=== PATIENT | female | born 1945 | race Caucasian/White ===

== ENCOUNTER → 2017-08-19 | Outpatient (CLI) | payer MEDICARE, OTHER ==
[~2017-08-19] MED LIST: IOPAMIDOL 370 MG/ML 200 ML INFUS..BTL INJ ONE; SODIUM CHLORIDE 0.9% 50ML 50 ML ONE
[2017-08-19 10:50] LABS: BLOOD UREA NITROGEN 15 mg/dL (7-26); BUN/CREATININE RATIO 17 (6-25); CREATININE, SERUM 0.89 mg/dL (0.57-1.11); EST GLOMERULAR FILTRATION RATE > 60 ML/MIN (60-)
--- NOTE | 2017-08-19 16:43 | Diagnostic Imaging Report ---
PROCEDURE:US GUIDANCE FOR VASCULAR ACCESS COMPARISON:None. INDICATIONS:IV access FINDINGS:Ultrasound evaluation of potential access sites was performed. After successfully identifying a patent vessel, US guidance was used to puncture the vein. A permanent recording was created for the patient record. CONCLUSION:Successful IV access by Ultrasound guidance. Kelechi Hughes M.D. Dictated by: Kelechi Hughes M.D. on 08/19/2017 at 16:48 Electronically approved by: Kelechi Hughes M.D. on 08/19/2017 at 16:48
--- NOTE | 2017-08-20 11:12 | Diagnostic Imaging Report ---
EXAMINATION: CT angiogram of the neck CLINICAL HISTORY: Carotid artery stenoses on the left side COMPARISON STUDIES: None TECHNIQUE: Axial images were obtained from the thoracic inlet. Coronal and sagittal images reconstructed from the axial data. Intravenous contrast: 100 mL of Isovue-370. FINDINGS: If present, stenosis of the carotid bulbs is measured based on NASCET criteria i.e area of maximum stenosis compared to the cervical ICA distal to the bulb. Aortic arch and major vessels: Scattered soft and calcified plaque without stenosis. Common origin of the brachiocephalic trunk and left common carotid artery as a normal variation of the anatomy. Common carotid arteries: Right: Patent. No abnormalities. Left :Patent. No abnormalities. Carotid bulbs: Right: Mostly soft and calcified plaque in the right posterior wall of the carotid bulb results in severe stenosis (greater than 70%). There is a small ulcerated plaque in the dorsal aspect of the carotid bulb. Left :Mostly soft plaque along the lateral and posterior wall of the left carotid bulb results in severe stenosis (greater than 70%). Internal carotid arteries: Right: Patent. No abnormalities. Left: Patent. No abnormalities. Vertebral arteries: Soft and calcified plaque at the origin of the left vertebral artery with occlusion of the left vertebral artery V1 segment, reconstitution of the distal V2, V3 and V4 segments is identified. The left vertebral artery end as a PICA. Overall there is mild diffuse narrowing and irregularity of the left vertebral artery, likely related to atherosclerosis. Patent right vertebral artery. IMPRESSION: 1. Severe stenosis of the bilateral carotid bulbs (greater than 70%). 2. Ulcerated soft atherosclerotic plaque in the right carotid bulb is considered highly embologenic. 3. 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 Signed by: Dr. Ngoc Tejeda M.D. on 08/20/2017 11:09 AM
== END ==
LOC: CT 10:13
PROVIDERS: ATTEND Internal Medicine Cardiovascular Disease
DX: I65.29 Occlusion and stenosis of unspecified carotid artery (principal)
CPT/HCPCS: 36415; 70498; 76937; 82565; 84520; Q9967

== ENCOUNTER 2017-09-07 05:58 | Inpatient (IN) | payer MEDICARE, OTHER ==
[2017-09-06 12:31] LABS: BASOPHILS % 0.5 % (0.0-1.0); EOSINOPHILS # (AUTO) 0.4 (0.0-0.4); EOSINOPHILS % 4.1 % (0.0-6.0); HEMATOCRIT 36.6 % (34.2-44.1); HEMOGLOBIN 12.1 g/dL (12.0-16.0); LYMPHOCYTES # (AUTO) 2.6 (1.0-3.2); LYMPHOCYTES % 30.9 % (18.0-39.1); MEAN CORPUSCULAR HEMOGLOBIN 30.8 pg (28-32); MEAN CORPUSCULAR HGB CONC 33.1 g/dL (31-35); MEAN CORPUSCULAR VOLUME 93.1 fL (81-99); MONOCYTES # (AUTO) 0.6 (0.2-0.8); MONOCYTES % 6.6 % (4.4-11.3); NEUTROPHILS # (AUTO) 4.9 (2.1-6.9); NEUTROPHILS % 57.7 % (38.7-80.0); PLATELET COUNT 228 x10e3/uL (140-360); RED BLOOD COUNT 3.93 x10e6/uL (3.6-5.1); RED CELL DISTRIBUTION WIDTH 13.9 % (11.7-14.4)
[2017-09-06 12:45] LABS: INR 1.08; PARTIAL THROMBOPLASTIN TIME 31.1 seconds (23.8-35.5); PROTHROMBIN TIME 13.2 seconds (11.9-14.5)
[2017-09-06 12:49] LABS: ANION GAP 13.8 mmol/L (8-16); BLOOD UREA NITROGEN 14 mg/dL (7-26); BUN/CREATININE RATIO 16 (6-25); CALCIUM 9.5 mg/dL (8.4-10.2); CARBON DIOXIDE 25 mmol/L (22-29); CHLORIDE 106 mmol/L (98-107); CREATININE, SERUM 0.86 mg/dL (0.57-1.11); EST GLOMERULAR FILTRATION RATE > 60 ML/MIN (60-); GLUCOSE 96 mg/dL (74-118); POTASSIUM 4.8 mmol/L (3.5-5.1); SODIUM 140 mmol/L (136-145)
--- NOTE | 2017-09-06 13:05 | Diagnostic Imaging Report ---
PROCEDURE: Frontal and lateral views of the chest. COMPARISON: None. INDICATIONS: PREOPERATIVE CHEST XRAY FOR LEFT HEART CATH FINDINGS: Lines/tubes: None. Lungs: The lungs are well inflated and clear. There is no evidence of pneumonia or pulmonary edema. Pleura: There is no pleural effusion or pneumothorax. Heart and mediastinum: The heart and the mediastinum are normal. Bones: No acute bony abnormality. IMPRESSION: 1. No acute cardiopulmonary disease. Dictated by: Satya Vuong M.D. on 09/06/2017 at 13:11 Electronically approved by: Satya Vuong M.D. on 09/06/2017 at 13:11
[~2017-09-07] VITALS: Ht 152.4 cm; Wt 84.4 kg
[2017-09-07] VITALS (21 sets, daily range): BP systolic 89–132; BP diastolic 49–81
[~2017-09-07 05:58] MED LIST changes: +AMITRIPTYLINE H10 MG PO; +AMLODIPINE BESYL5 MG PO; +ASPIR 8181 MG PO; +ATORVASTATIN CA40 MG PO; +CARVEDILOL3.125 MG PO; +EFFIENT10 MG PO; -IOPAMIDOL 370 MG/ML 200 ML INFUS..BTL INJ ONE; -SODIUM CHLORIDE 0.9% 50ML 50 ML ONE
[2017-09-07] MEDS ORDERED: PROTAMINE SULFATE 10 MG/ML 5 ML VIAL ONE (06:22)
[2017-09-07] MEDS ORDERED: HEPARIN SOD (PORCINE) 1000 UNIT/ML 30ML ONE (06:22)
[2017-09-07] MEDS ORDERED: LIDOCAINE HCL 1% 2 ML AMP ONE (06:22)
[2017-09-07] MEDS ORDERED: GELATIN SPONGE SZ 100 ONE (06:23)
[2017-09-07] MEDS ORDERED: SODIUM CHLORIDE 0.9% 500ML 500 ML ONE (06:23)
[2017-09-07] MEDS ORDERED: MUPIROCIN 2% OINT 22 GM TUBE ONE (06:23)
[2017-09-07] MEDS ORDERED: THROMBIN FOR SOLN 5,000 UNIT VIAL ONE (06:23)
[2017-09-07] MEDS ORDERED: CEFAZOLIN SOD 1 GM VIAL ONE (07:02)
[2017-09-07] MEDS ORDERED: SODIUM CHLORIDE 0.9% 100 ML 100 ML ONE (08:45)
[2017-09-07] MEDS ORDERED: MORPHINE SULFATE 2 MG/ML SYR ONE (10:33)
[2017-09-07] MEDS ORDERED: FENTANYL CITRATE/PF 100MCG/2 ML INJ ONE ×2 (10:57→15:47)
[2017-09-07 10:59] LABS: BASOPHILS % 0.3 % (0.0-1.0); EOSINOPHILS # (AUTO) 0.2 (0.0-0.4); EOSINOPHILS % 1.6 % (0.0-6.0); HEMATOCRIT 35.1 % (34.2-44.1); HEMOGLOBIN 11.8 g/dL (12.0-16.0); LYMPHOCYTES # (AUTO) 1.6 (1.0-3.2); LYMPHOCYTES % 15.4 % (18.0-39.1); MEAN CORPUSCULAR HEMOGLOBIN 31.1 pg (28-32); MEAN CORPUSCULAR HGB CONC 33.6 g/dL (31-35); MEAN CORPUSCULAR VOLUME 92.4 fL (81-99); MONOCYTES # (AUTO) 0.1 (0.2-0.8); MONOCYTES % 1.3 % (4.4-11.3); NEUTROPHILS # (AUTO) 8.3 (2.1-6.9); NEUTROPHILS % 81.1 % (38.7-80.0); PLATELET COUNT 206 x10e3/uL (140-360); RED CELL DISTRIBUTION WIDTH 13.6 % (11.7-14.4)
[2017-09-07 11:18] LABS: ALANINE AMINOTRANSFERASE 16 IU/L (0-55); ALBUMIN/GLOBULIN RATIO 1.5 (0.8-2.0); ALKALINE PHOSPHATASE 92 IU/L (40-150); ANION GAP 15.5 mmol/L (8-16); BLOOD UREA NITROGEN 13 mg/dL (7-26); BUN/CREATININE RATIO 15 (6-25); CALCIUM 8.9 mg/dL (8.4-10.2); CARBON DIOXIDE 20 mmol/L (22-29); CHLORIDE 109 mmol/L (98-107); CREATININE, SERUM 0.85 mg/dL (0.57-1.11); EST GLOMERULAR FILTRATION RATE > 60 ML/MIN (60-); GLUCOSE 182 mg/dL (74-118); POTASSIUM 4.5 mmol/L (3.5-5.1); SODIUM 140 mmol/L (136-145)
[2017-09-07] MEDS: SODIUM CHLORIDE 0.9% 1000ML 1,000 ML IV SCH ×2 (12:00→23:45)
[2017-09-07] MEDS ORDERED: MORPHINE SULFATE INJ 4 MG/ML INJ IV PRN (12:15)
[2017-09-07] MEDS ORDERED: LABETALOL HCL 5 MG/ML 20ML VIAL IV PRN (12:15)
[2017-09-07] MEDS ORDERED: ONDANSETRON HCL INJ 2 MG/ML VIAL IV PRN (12:15)
--- NOTE | 2017-09-07 12:36 | Diagnostic Imaging Report ---
PROCEDURE:SPINE 1 VIEW CERVICAL. COMPARISON:None. INDICATIONS:OR portable radiographs for lost needle. FINDINGS: One portable view of the cervical spine (AP) The patient is intubated with the endotracheal tube just below the thoracic inlet. Two surgical clips are projected over the right side of the cervical spine. No radiopaque needle is identified. CONCLUSION: No radiopaque needle is identified. Dictated by: Dimitri Lerma M.D. on 09/07/2017 at 12:42 Electronically approved by: Dimitri Lerma M.D. on 09/07/2017 at 12:42
[2017-09-07] MEDS ORDERED: MIDAZOLAM HCL 2 MG/2 ML VIAL ONE (15:47)
--- NOTE | 2017-09-07 15:59 | Consultation ---
DATE OF CONSULTATION: September 07, 2017 PULMONARY/CRITICAL CARE CONSULTATION DICTATION STOPPED AT THIS POINT. Job#: [id number]
--- NOTE | 2017-09-07 17:18 | Consultation ---
DATE OF CONSULTATION: September 07, 2017 PULMONARY/CRITICAL CARE CONSULTATION REFERRING PHYSICIAN: Dr. Garrick Moreland. CHIEF COMPLAINT: COPD and CHF with recent carotid endarterectomy. HISTORY OF PRESENT ILLNESS: The patient is a 72-year-old woman. She has a history of CHF and COPD. She has bilateral carotid artery stenosis. She came in complaining of symptoms consistent with impaired circulation. She went for a carotid endarterectomy. The surgery went well. There were no intraoperative problems. She had minimal blood loss. She now complains of a sore throat. She complains of some pain in the side of her neck. PAST SURGICAL HISTORY: Status post carotid endarterectomy. PAST MEDICAL HISTORY: 1. COPD. 2. Hypertension. 3. Possible CHF. SOCIAL HISTORY: The patient was never a smoker. She is not a drinker. FAMILY HISTORY: Noncontributory. ALLERGIES: NO KNOWN DRUG ALLERGIES. REVIEW OF SYSTEMS: The patient has no fever or headache. She did have a sore throat after anesthesia. She complains of some neck pain. She is not having any chest pain. She did not complain of difficulty breathing, abdominal pain, nausea or vomiting. She has no leg pain. PHYSICAL EXAMINATION VITAL SIGNS: The patient is afebrile. The vital signs are stable. HEENT: No facial swelling or erythema. The nasal mucosa is normal. The oropharynx is normal. NECK: No JVD or thyromegaly. There is no nuchal rigidity. LYMPHATICS: No submandibular, cervical or supraclavicular adenopathy. CARDIAC EXAM: Regular rate and rhythm with normal S1 and S2. There are no murmurs or rubs. LUNGS: Auscultation of the lungs reveals clear breath sounds bilaterally. There is no wheezing. ABDOMEN: Soft and nontender. There is no rebound or guarding. EXTREMITIES: No leg edema or calf tenderness. IMPRESSION 1. Chronic obstructive pulmonary disease. 2. Carotid endarterectomy. PLAN: Continue current therapy. Mobilize the patient as soon as possible. Pain control. Job#: [id number]
[2017-09-07] MEDS ORDERED: EPHEDRINE SULFATE INJ 50 MG/10 ML SYR ONE (18:19)
[2017-09-07] MEDS ORDERED: ONDANSETRON HCL INJ 2 MG/ML VIAL ONE (18:19)
[2017-09-07] MEDS ORDERED: GLYCOPYRROLATE INJ 1MG/ 5 ML SYR ONE (18:19)
[2017-09-07] MEDS ORDERED: PROPOFOL IV EMULSION 10 MG/ML 20 ML VIAL ONE (18:19)
[2017-09-07] MEDS ORDERED: HYDRALAZINE HCL 20 MG/ML VIAL ONE (18:19)
[2017-09-07] MEDS ORDERED: DEXAMETHASONE SOD PHOS INJ 4 MG/ML VIAL ONE (18:19)
[2017-09-07] MEDS ORDERED: SEVOFLURANE INHAL SOLN 250 ML PEN BTL ONE (18:19)
[2017-09-07] MEDS ORDERED: NEOSTIGMINE 5 MG/5ML SYR ONE (18:19)
[2017-09-07] MEDS ORDERED: PHENYLEPHRINE HCL 1% 10 MG/ML VIAL ONE (18:19)
[2017-09-07] MEDS ORDERED: ROCURONIUM BROMIDE 10 MG/ML 5ML VIAL ONE (18:19)
[2017-09-07] MEDS ORDERED: LIDOCAINE HCL 2% LOCAL INJ 5 ML SDV VIAL INJ ONE (18:19)
--- NOTE | 2017-09-07 19:43 | Operative Report ---
DATE OF PROCEDURE: September 07, 2017 [employer]OACH TR[employer]ER: Matt Law PREOPERATIVE DIAGNOSIS: Right carotid stenosis. POSTOPERATIVE DIAGNOSIS: Right carotid stenosis. TITLE OF OPERATION: Right carotid endarterectomy. DESCRIPTION OF OPERATION: After the satisfactory accomplishment of general anesthesia, the patient's right neck was prepped and draped in a sterile fashion. A standard right carotid incision was made along the anterior border of the sternomastoid muscle. The incision was carried down through the subcutaneous tissues to expose the right common carotid artery. The vessel was dissected free from the surrounding tissues and looped with a vessel loop. The dissection was then carried distally to expose the internal carotid artery and the external carotid artery and its branches. Care was taken to identify and preserve all nerve structures in the region. Systemic heparin was given for the purposes of anticoagulation. The common, external and internal carotid arteries were briefly cross-clamped. A long incision was made in the common carotid artery and carried distally through the bifurcation and well up into the internal carotid artery. A severely obstructing, highly ulcerated plaque was quickly encountered. An indwelling shunt was placed in the common carotid artery proximally and the internal carotid artery distally, thereby re-establishing blood flow to the right side of the brain for the remainder of the case. The plaque was then carefully removed using standard endarterectomy techniques. Following this, the surface of the vessel was smoothed, and all loose debris was carefully removed. Heparinized saline flushes were routinely employed. A previously constructed Dacron patch was brought into the operative field and used to close the arteriotomy site. Running 7-0 Prolene was used for this patch closure. Prior to completing the closure, the shunt was removed. The vessel was flushed free from all air and debris. Once the sutures were tied, excellent pulses were located within the patch area and beyond. Protamine was given to counteract the effects of the heparin. The cannula was removed. The sutures were then tied. The entire area was then irrigated with antibiotic solution, and all bleeding points were carefully cauterized, ligated or oversewn. The wound was then closed in layers with interrupted 2-0 Vicryl for the deep tissues, running 2-0 Vicryl for the subcutaneous tissues, and a Monocryl subcuticular stitch for the skin. The patient tolerated the procedure well and was returned to the intensive care unit in good condition. Job#: [id number]
[2017-09-07] MEDS ORDERED: CEFAZOLIN SOD 1 GM VIAL IV SCH (20:00)
[2017-09-07] MEDS: HYDROCODONE/APAP 5MG-325MG TAB PO PRN (21:17)
[2017-09-08] VITALS (43 sets, daily range): BP systolic 83–192; BP diastolic 44–104
[2017-09-08 05:20] LABS: BASOPHILS % 0.1 % (0.0-1.0); HEMATOCRIT 31.9 % (34.2-44.1); HEMOGLOBIN 10.4 g/dL (12.0-16.0); LYMPHOCYTES # (AUTO) 1.8 (1.0-3.2); MEAN CORPUSCULAR HEMOGLOBIN 31.1 pg (28-32); MEAN CORPUSCULAR HGB CONC 32.6 g/dL (31-35); MEAN CORPUSCULAR VOLUME 95.5 fL (81-99); MONOCYTES # (AUTO) 0.6 (0.2-0.8); MONOCYTES % 3.6 % (4.4-11.3); NEUTROPHILS # (AUTO) 13.5 (2.1-6.9); NEUTROPHILS % 83.5 % (38.7-80.0); PLATELET COUNT 218 x10e3/uL (140-360); RED BLOOD COUNT 3.34 x10e6/uL (3.6-5.1); RED CELL DISTRIBUTION WIDTH 13.7 % (11.7-14.4)
[2017-09-08 05:42] LABS: ALANINE AMINOTRANSFERASE 14 IU/L (0-55); ALBUMIN 3.6 g/dL (3.5-5.0); ALBUMIN/GLOBULIN RATIO 1.4 (0.8-2.0); ALKALINE PHOSPHATASE 81 IU/L (40-150); ANION GAP 13.2 mmol/L (8-16); BLOOD UREA NITROGEN 13 mg/dL (7-26); BUN/CREATININE RATIO 17 (6-25); CALCIUM 8.8 mg/dL (8.4-10.2); CARBON DIOXIDE 22 mmol/L (22-29); CHLORIDE 110 mmol/L (98-107); CREATININE, SERUM 0.77 mg/dL (0.57-1.11); EST GLOMERULAR FILTRATION RATE > 60 ML/MIN (60-); GLUCOSE 131 mg/dL (74-118); POTASSIUM 4.2 mmol/L (3.5-5.1); SODIUM 141 mmol/L (136-145)
[2017-09-08] MEDS: SODIUM CHLORIDE 0.9% 1000ML 1,000 ML IV SCH (07:46)
[2017-09-08] MEDS: HYDROCODONE/APAP 5MG-325MG TAB PO PRN (07:46)
[2017-09-08] MEDS ORDERED: FLUTICASONE PROPIONATE NASAL SPRAY NS PRN (09:00)
--- NOTE | 2017-09-08 09:14 | Consultation ---
DATE OF CONSULTATION: September 07, 2017 CARDIOLOGY CONSULTATION REASON FOR CONSULTATION: Status post right CEA. HPI: This is a pleasant 72-year-old female with a history of bilateral carotid stenosis. Yesterday, she underwent a right carotid endarterectomy and she is doing okay, and was transferred to ICU for further management. She has a history of CAD with stent placement in the past. She is status post right CEA and complaining of throat soreness from the intubation. She denied any chest pain, any palpitation, any dizziness, any shortness of breath, or diaphoresis. PAST MEDICAL HISTORY: Bilateral carotid stenosis, COPD CHF, hypertension, borderline diabetes, and hyperlipidemia. PAST SURGICAL HISTORY: Tonsillectomy, hysterectomy, hernia repair, bilateral rotator cuff surgery, CAD times 3 stents, and recent right CEA. FAMILY HISTORY: Positive for hypertension. SOCIAL HISTORY: She lives at home with the . MEDICATIONS: See med list. ALLERGIES: SHE IS NOT ALLERGY TO ANY MEDICATION. REVIEW OF SYSTEMS: Negative except those mentioned above. She is status post right CEA. PHYSICAL EXAMINATION VITAL SIGNS: Temperature 98, heart rate 61, blood pressure 141/68, respirations 16, oxygen saturation 99% on room air. GENERAL: She is awake, alert and oriented times 3, but complaining of some throat soreness. HEENT: Mucous membrane moist. NECK: Supple. LUNGS: Bilateral clear to auscultation. CARDIOVASCULAR: S1 and S2 present. ABDOMEN: Soft. NEUROLOGICAL: Intact. EXTREMITIES: With no edema. LABS: Sodium 141, potassium 4.2, chloride 110, CO2 22, BUN is 13, creatinine 0.77, glucose 131. White blood cells 16.2, hemoglobin 10.4, hematocrit 31.9, and platelets 218,000. PT 13.2, PTT 31.1, and INR 1.08. IMPRESSION 1. Status post right carotid endarterectomy. 2. Coronary artery disease with stents. 3. Hypertension. 4. Chronic obstructive pulmonary disease. 5. History of congestive heart failure. 6. Bilateral carotid stenosis. ASSESSMENT AND PLAN 1. She has no complaint of chest pain. 2. Will continue her home medications. 3. She is hemodynamically stable. 4. She is planned in 3 weeks for left carotid stenosis. 5. Will go ahead and give her full liquids since she is complaining of soreness in her throat and difficulty to swallow solid food. Further cardiac workup pending clinical course. Thank you for this consultation. DICTATED BY GAETANO SOARES NP Job#: [id number] [place]
[2017-09-08] MEDS: CARVEDILOL 3.125 MG TAB PO SCH ×2 (10:18→10:19)
[2017-09-08] MEDS: AMLODIPINE BESYLATE 5 MG TAB PO SCH (10:18)
[2017-09-08] MEDS ORDERED: ALBUTEROL/IPRATROPIUM 3 ML NEB NEB PRN (12:00)
[2017-09-08] MEDS ORDERED: HYDROCODONE/APAP 10MG-325MG TAB PO PRN (13:00)
[2017-09-08] MEDS ORDERED: PANTOPRAZOLE 40 MG 10ML VIAL IV SCH (13:00)
[2017-09-08] MEDS ORDERED: HYDROCORTISONE SOD SUCCINATE 100 MG VIAL IV ONE (13:00)
[2017-09-08] MEDS: PANTOPRAZOLE 40 MG 10ML VIAL IV SCH (13:20)
[2017-09-08] MEDS: DOXYCYCLINE 100MG/NS 100ML 100 ML IV SCH (13:31)
[2017-09-08] MEDS ORDERED: CHLORASEPTIC SPRAY 177 ML BTL MM PRN (15:45)
[2017-09-08] MEDS ORDERED: ENOXAPARIN SOD INJ 40 MG/0.4 ML SYR SC SCH (17:00)
[2017-09-08] MEDS ORDERED: AMITRIPTYLINE HCL 10 MG TAB PO SCH (21:00)
[2017-09-08] MEDS ORDERED: ATORVASTATIN 40 MG TAB PO SCH (21:00)
[2017-09-09] VITALS (16 sets, daily range): BP systolic 104–161; BP diastolic 46–83
[2017-09-09] MEDS: DOXYCYCLINE 100MG/NS 100ML 100 ML IV SCH (01:47)
[2017-09-09 05:06] LABS: BASOPHILS % 0.3 % (0.0-1.0); EOSINOPHILS # (AUTO) 0.1 (0.0-0.4); EOSINOPHILS % 0.4 % (0.0-6.0); HEMATOCRIT 31.2 % (34.2-44.1); LYMPHOCYTES # (AUTO) 3.3 (1.0-3.2); LYMPHOCYTES % 25.5 % (18.0-39.1); MEAN CORPUSCULAR HEMOGLOBIN 30.7 pg (28-32); MEAN CORPUSCULAR HGB CONC 32.1 g/dL (31-35); MEAN CORPUSCULAR VOLUME 95.7 fL (81-99); MONOCYTES # (AUTO) 0.8 (0.2-0.8); MONOCYTES % 6.3 % (4.4-11.3); NEUTROPHILS # (AUTO) 8.5 (2.1-6.9); NEUTROPHILS % 66.2 % (38.7-80.0); PLATELET COUNT 200 x10e3/uL (140-360); RED BLOOD COUNT 3.26 x10e6/uL (3.6-5.1)
[2017-09-09 05:25] LABS: ALANINE AMINOTRANSFERASE 11 IU/L (0-55); ALBUMIN 3.5 g/dL (3.5-5.0); ALBUMIN/GLOBULIN RATIO 1.3 (0.8-2.0); ALKALINE PHOSPHATASE 80 IU/L (40-150); ANION GAP 13.2 mmol/L (8-16); BLOOD UREA NITROGEN 11 mg/dL (7-26); BUN/CREATININE RATIO 15 (6-25); CALCIUM 8.7 mg/dL (8.4-10.2); CARBON DIOXIDE 26 mmol/L (22-29); CHLORIDE 109 mmol/L (98-107); CREATININE, SERUM 0.75 mg/dL (0.57-1.11); EST GLOMERULAR FILTRATION RATE > 60 ML/MIN (60-); GLUCOSE 109 mg/dL (74-118); POTASSIUM 4.2 mmol/L (3.5-5.1); SODIUM 144 mmol/L (136-145)
[2017-09-09] MEDS ORDERED: NON-FORMULARY MEDICATION (Atorvastatin Calcium 40 MG) PO SCH (09:00)
[2017-09-09] MEDS ORDERED: PRASUGREL 10 MG TAB PO SCH (09:00)
[2017-09-09] MEDS ORDERED: ASPIRIN 81 MG CHEW TAB PO SCH (09:00)
[2017-09-09] MEDS: CARVEDILOL 3.125 MG TAB PO SCH (09:00)
[2017-09-09] MEDS: PANTOPRAZOLE 40 MG 10ML VIAL IV SCH (09:27)
[2017-09-09] MEDS: AMLODIPINE BESYLATE 5 MG TAB PO SCH (09:28)
== END 2017-09-09 12:00 | disposition home or self-care (01) | DRG 39 ==
LOC: OR 05:58 → PACU V 11:25 → ICU 11:55
PROVIDERS: ADMIT Thoracic Surgery (Cardiothoracic Vascular Surgery); ATTEND Thoracic Surgery (Cardiothoracic Vascular Surgery)
PROC: 03UH0JZ Supplement Right Common Carotid Artery with Synthetic Substitute, Open Approach (ICD-10-PCS; 2017-09-07)
PROC: 03CH0Z6 (ICD-10-PCS; principal; 2017-09-07 07:30)
DX: I65.21 Occlusion and stenosis of right carotid artery (principal); I25.10 Atherosclerotic heart disease of native coronary artery without angina pectoris; Z95.5 Presence of coronary angioplasty implant and graft; Z86.73 Personal history of transient ischemic attack (TIA), and cerebral infarction without residual deficits; R00.1 Bradycardia, unspecified; J44.9 Chronic obstructive pulmonary disease, unspecified
CPT/HCPCS: 36415; 71046; 72020; 80048; 80053; 85025; 85610; 85730; 86850; 86900; 86920; 88304; 88305; 88311; 93005; 94640; 96361; 96367; C1768; J0360; J0690; J1100; J1644; J1650; J1720; J2001; J2250; J2270; J2370; J2405; J2720; J7030; J7040